=== PATIENT | female | born 1985 | race Caucasian/White ===

== ENCOUNTER → 2017-01-16 | Outpatient (CLI) | payer BC ==
[~2017-01-16] MED LIST: ASPI-390 PO; BCPILLS PO
== END | disposition home or self-care (01) ==
LOC: C.PAPS 11:24
PROVIDERS: ATTEND Obstetrics & Gynecology
DX: Z01.419 Encounter for gynecological examination (general) (routine) without abnormal findings (principal)

== ENCOUNTER 2019-04-15 07:44 | Inpatient (IN) ==
[2019-04-15] MEDS ORDERED: OXYTOCIN 30 UNITS/500 ML BAG IV PRN ×2 (07:51)
[2019-04-15 08:31] LABS: Basophils # (auto) 0.01 K/uL (0-0.2); Basophils % (auto) 0.1 %; Eosinophils # (auto) 0.07 K/uL (0-0.5); Eosinophils % (auto) 0.9 %; Hematocrit (blood only) 35.9 % (37-47); Hemoglobin 11.9 g/dL (12.0-16.0); Immature Granulocytes # (auto) 0.05 K/uL (0.00-0.02); Immature Granulocytes % (auto) 0.6 %; Lymphocytes # (auto) 1.83 K/uL (1.2-3.4); Lymphocytes % (auto) 22.5 %; Mean Corpuscular Hemoglobin 28.5 pg (25-34); Mean Corpuscular Volume 86.1 fL (80-100); Mean Platelet Volume 9.9 fL (7.4-10.4); Monocytes # (auto) 0.66 K/uL (0.11-0.59); Monocytes % (auto) 8.1 %; Neutrophils # (auto) 5.52 K/uL (1.4-6.5); Neutrophils % (auto) 67.8 %; Platelet Count 194 K/uL (130-400); RDW Coefficient of Variation 13.1 % (11.5-14.5); RDW Standard Deviation 40.8 fL (36.4-46.3); Red Blood Count 4.17 M/uL (4.2-5.4); White Blood Count 8.14 K/uL (4.8-10.8)
[2019-04-15 08:38] LABS: Mean Corpuscular Hgb Conc 33.1 g/dL (32-36)
[2019-04-15 08:42] LABS: Partial Thromboplastin Ratio 0.8; Partial Thromboplastin Time 22.9 Seconds (21.0-31.0); Prothrombin Time 10.1 Seconds (9.0-12.0)
[2019-04-15] MEDS: LACTATED RINGER'S 1,000 ML IV PRN ×3 (08:53→18:06)
[2019-04-15 08:58] LABS: Albumin Level 2.6 gm/dl (3.4-5.0); BUN Creatinine Ratio 15.3 (10-20); Calcium 8.6 mg/dl (8.5-10.1); Est GFR (African American) 131.9; Est GFR (Non-African American) 113.8; Potassium 3.5 mmol/L (3.5-5.1)
[2019-04-15 09:01] LABS: Albumin Globulin Ratio 0.7 (0.9-2); Bilirubin,Total 0.7 mg/dl (0.2-1); Globulin 3.9 gm/dl (2.5-4.0); Total Protein 6.5 gm/dl (6.4-8.2)
--- NOTE | 2019-04-15 09:13 | History & Physical Report ---
Date of Service April 15, 2019 Assessment & Plan (1) Encounter for induction of labor: IUP at 37 weeks with diagnosis of gestational hypertension lay begin pitocin induction of labor patient plans on epidural analgesia for labor pain control anticipate vaginal (2) Gestational HTN: we will get baseline PIH labs monitor as needed pending initial labs & BP's History of Present Illness Chief Complaint: Induction of labor for gestational HTN Primary Care Provider: Mg Valdes DO Patient is a 33 yo white female EDC/[birth year] who presents at 37 weeks for IOL because of gestational HTN. This was diagnosed by BP criteria 2 days ago. No PIH symptoms. GBS negative. otherwise has been uncomplicated. Blood type B negative. Allergies Allergy/AdvReac Type Severity Reaction Status Date / Time No Known Drug Allergies Allergy none Verified 04/13/19 13:28 Home Medications Home Medications Medication Instructions Recorded Confirmed Type PNV cmb#95-ferrous fumarate-FA 1 tab PO DAILY 04/10/19 04/15/19 History [] Patient History Medical History (Updated 04/15/19 @ 09:29 by Loren Esparza MD, FACOG) History of migraine History of varicella Low lying placenta nos or without hemorrhage, unspecified trimester resolved Surgical History (Updated 04/15/19 @ 07:59 by Catina Tran RN) H/O laparoscopy WNL History of lymph node biopsy History of wisdom tooth extraction Social History Preferred Language: Irish Communication Ability: Effective Rn Documentation Specialist Required: No Beliefs That Will Affect Care: None marital status: Current Living Situation: Spouse Other Information That Helps Us Care for You: No Feels Safe at Home: Yes Safety Concerns: Feels Safe At This Time Smoking Status: Never smoker Hx Alcohol Use: No Hx Substance Use: No Review of Systems All systems reviewed & are unremarkable except as noted in HPI & below Physical Exam Constitutional: WD/WN, vitals as above Respiratory: normal respiratory effort, lungs clear to auscultation Cardiovascular: RRR, no murmur, no edema Gastrointestinal (Abdomen): normal bowel sounds, soft, nontender, no hepatosplenomegaly Psychiatric: A+Ox3, euthymic affect Genitourinary: OB Exam Abdomen: + estimated weight (6-7 pounds) Manual OB Exam: + cervical dilation 2 cm, + cervical effacement 90% and + station -2 OB Exam Monitor Tracing: + external FHT monitor used, + external uterine monitor used, + category I and + normal FHT variability Results & Data Vital Signs (Past 12 Hours) Vital Signs Temp Pulse Resp BP 04/15/19 08:56 97 H 130/83 04/15/19 08:33 104 H 129/70 04/15/19 08:19 102 H 140/78 04/15/19 08:05 98.2 F 18 04/15/19 07:56 107 H 138/87
[2019-04-15] MEDS ORDERED: BUPIVACAINE 0.25% 30 ML VIAL ONE (15:14)
[2019-04-15] MEDS ORDERED: ePHEDrine sulfate 50 MG/ML AMP ONE (15:14)
[2019-04-15] MEDS ORDERED: fentaNYL citrate 100 MCG/2 ML VIAL ONE (15:14)
[2019-04-15] MEDS ORDERED: fentaNYL 2MCG/ML ROPIV 1.25MG/ML 100 ML BAG EPI ONE (15:15)
[2019-04-15] MEDS ORDERED: DiphenhydrAMINE HCL 50 MG/ML VIAL IV PRN (15:18)
[2019-04-15] MEDS ORDERED: ePHEDrine sulfate 50 MG/ML AMP IV PRN (15:18)
[2019-04-15] MEDS ORDERED: NALBUPHINE HCL INJ 10 MG/ML AMP IV PRN (15:18)
[2019-04-15] MEDS ORDERED: NALOXONE HCL 1 MG in SODIUM CHLORIDE 0.9% 1000ML 1,000 ML IV PRN (15:18)
[2019-04-15] MEDS ORDERED: NALOXONE HCL 0.4 MG/1 ML VIAL/CARP IV PRN (15:18)
--- NOTE | 2019-04-15 15:25 | Anesthesiology Consultation ---
Date of Service April 15, 2019 Assessment & Plan (1) Encounter for pre-operative examination: Chart Review Chart Review: Acceptable Risk for Labor Epidural Consults Requested none ASA ASA2 Proposed Anesthesia Anesthesia Type: Labor Epidural Risk / Benefits Reviewed With: PT / POA / Parent / Guardian, Accepts Plan and Informed Consent Obtained History Height/Weight Height: 5 ft 6 in Weight: 92.533 kg Allergies Allergy/AdvReac Type Severity Reaction Status Date / Time No Known Drug Allergies Allergy none Verified 04/13/19 13:28 Medications Home Medications Medication Instructions Recorded Confirmed Last Taken PNV cmb#95-ferrous fumarate-FA 1 tab PO DAILY 04/10/19 04/15/19 04/14/19 [] Active Medications Generic Name Dose Route Start Last Admin Trade Name Freq PRN Reason Stop Dose Admin Lactated Ringer's 1,000 mls @ 125 mls/hr 04/15/19 07:51 04/15/19 15:20 Lr IV 04/17/19 07:50 999 mls/hr .Q8H PRN Administration L&D Protocol Protocol Oxytocin 30 units in 500 mls @ 13 mls/hr 04/15/19 07:51 04/15/19 13:47 Pitocin IV 04/17/19 07:50 0.78 units/hr .Q24H PRN 13 mls/hr Labor Induction/Augmentation Titration Protocol 0.78 UNITS/HR Past Medical History Medical History History of migraine History of varicella Low lying placenta nos or without hemorrhage, unspecified trimester resolved Exercise / Class Metabolic Activity II 4-5 Yardwork/Stairs/Walk up hill Past Family History Family History Father Diabetes Hypertension Grandmother (Paternal) Diabetes Sister Gestational diabetes Grandfather (Maternal) Neoplasm of brain Mother Dyslipidemia Past Surgical History Surgical History H/O laparoscopy WNL History of lymph node biopsy History of wisdom tooth extraction Past Anesthesia History No Hx of Anesthesia Complications and No Family Hx of Anesthesia Complications History of PONV No Hx of PONV and No Hx of Motion Sickness Social History Smoking Status: Never smoker Hx Alcohol Use: No Hx Substance Use: No substance use type: does not use Physical Exam Vital Signs Last Vital Signs Temp 98.1 F 04/15/19 11:02 Pulse 94 H 04/15/19 15:17 Resp 16 04/15/19 13:47 BP 143/93 H 04/15/19 15:12 Pulse Ox 97 04/15/19 15:17 ENMT Mouth: no dentition abnormality Thyromental Distance: > or= 3.5 Finger Breadths Mallampati Class: II Neck normal visual inspection Respiratory normal respiratory effort Auscultation: lungs clear to auscultation bilaterally Cardiovascular Rate/Rhythm: regular rate and regular rhythm Testing Laboratory Results 04/15/19 08:10 04/15/19 08:10 PT 10.1 Seconds (9.0-12.0) 04/15/19 08:10 INR 1.0 (0.9-1.1) 04/15/19 08:10 APTT 22.9 Seconds (21.0-31.0) 04/15/19 08:10
[2019-04-15] MEDS: ONDANSETRON INJ 2 MG/ML 2 ML VIAL IV PRN (16:33)
[2019-04-15] MEDS ORDERED: ACETAMINOPHEN 325 MG TAB PO PRN (19:39)
[2019-04-15] MEDS ORDERED: CALCIUM CARBONATE 500 MG CHEWABLE TAB PO PRN (21:48)
[2019-04-15] MEDS: fentaNYL 2MCG/ML ROPIV 1.25MG/ML 100 ML BAG EPI PRN (23:02)
[2019-04-16] MEDS: LACTATED RINGER'S 1,000 ML IV PRN (02:35)
[2019-04-16] MEDS: ONDANSETRON INJ 2 MG/ML 2 ML VIAL IV PRN (03:30)
[2019-04-16] MEDS: fentaNYL 2MCG/ML ROPIV 1.25MG/ML 100 ML BAG EPI PRN (04:00)
[2019-04-16] MEDS ORDERED: SUPERCREAM 0.870% 15 GM JAR EXT PRN ×2 (06:39→23:28)
[2019-04-16] MEDS ORDERED: DIPHTHERIA/TETANUS/PERTUSSIS 0.5 ML SYR/VIAL IM ONE (06:39)
[2019-04-16] MEDS ORDERED: HYDROCORTISONE ACETATE 25 MG SUPP PR PRN ×2 (06:39→23:28)
[2019-04-16] MEDS ORDERED: OXYTOCIN 30 UNITS/500 ML BAG IV PRN ×2 (06:39→23:28)
[2019-04-16] MEDS ORDERED: bisacodyL 10 MG SUPP PR PRN ×2 (06:39→23:28)
[2019-04-16] MEDS ORDERED: IBUPROFEN 600 MG TAB PO ONE (06:44)
--- NOTE | 2019-04-16 07:24 | Delivery Summary ---
DATE OF OPERATION: 04/16/2019 The patient is a 33-year-old 2, para 0-0-1-0, white female, EDC of [birth year]05/2019, who presented at 37 weeks for induction of labor because of gestational hypertension at 37 weeks. She began on Pitocin augmentation of her labor. Membranes were ruptured. She was 4 cm dilated. She received epidural analgesia that was effective. She progressed to full dilation and pushed effectively over intact perineum. There was a loose nuchal cord, which was reduced at the time of delivery. The rest of the delivered with a very mild shoulder dystocia which was resolved with hyperflexion of the hips. The rest of the was delivered and placed on mother's abdomen for further attention and drying. After approximately 20 seconds, the cord was clamped and cut. The infant had poor respiratory effort and was brought to the baby bed for further evaluation and drying. He did receive CPAP and as a result was taken to the nursery for further assessment. The placenta was expressed intact with a 3-vessel cord. A first-degree perineal laceration was repaired with 3-0 chromic in the usual fashion. Estimated blood loss was 350 mL. Mother is doing well after delivery, baby stable in the nursery undergoing further evaluation. I attest to the content of the Intraoperative Record and any orders documented therein. Any exceptions are noted below. MTDD
--- NOTE | 2019-04-16 07:35 | Anesthesia Procedure Note ---
Date of Service April 16, 2019 Anesthesia Post Epidural Note Vital Signs Vital Signs: Temp Pulse Resp BP Pulse Ox 37.4 C 99 H 18 128/73 99 04/16/19 06:23 04/16/19 07:26 04/16/19 07:06 04/16/19 07:26 04/16/19 06:30 Pain Intensity Head: Pain Intensity: 5 Bilateral Perineal: Pain Intensity: 5 Notes Mental Status: alert / awake / arousable and participated in evaluation Nausea / Vomiting: adequately controlled Pain: adequately controlled Airway Patency, RR, SpO2: stable & adequate BP & HR: stable & adequate Hydration State: stable & adequate Neuraxial Anesthesia: was administered and sensory block is resolving Anesthetic Complications: no major complications apparent Epidural: Removed without complications and With tip intact
[2019-04-16] MEDS: BENZOCAINE 20% AER SPR 82.5 GM CAN EXT PRN (08:19)
[2019-04-16] MEDS: ACETAMINOPHEN 325 MG TAB PO PRN (08:19)
[2019-04-16] MEDS: DOCUSATE SODIUM 100 MG CAP PO SCH ×2 (08:19→22:11)
[2019-04-16] MEDS: PRENATAL VITAMIN 1 TAB PO SCH (08:50)
[2019-04-16] MEDS: IBUPROFEN 600 MG TAB PO PRN ×3 (11:01→22:12)
[2019-04-16 20:58] LABS: Basophils # (auto) 0.02 K/uL (0-0.2); Basophils % (auto) 0.1 %; Eosinophils # (auto) 0.08 K/uL (0-0.5); Eosinophils % (auto) 0.5 %; Hemoglobin 8.3 g/dL (12.0-16.0); Immature Granulocytes # (auto) 0.07 K/uL (0.00-0.02); Immature Granulocytes % (auto) 0.4 %; Lymphocytes # (auto) 2.68 K/uL (1.2-3.4); Lymphocytes % (auto) 15.2 %; Mean Corpuscular Hemoglobin 29.7 pg (25-34); Mean Corpuscular Hgb Conc 34.6 g/dL (32-36); Mean Platelet Volume 9.7 fL (7.4-10.4); Monocytes # (auto) 1.79 K/uL (0.11-0.59); Monocytes % (auto) 10.2 %; Neutrophils # (auto) 12.96 K/uL (1.4-6.5); Neutrophils % (auto) 73.6 %; Platelet Count 168 K/uL (130-400); RDW Coefficient of Variation 13.2 % (11.5-14.5); RDW Standard Deviation 41.2 fL (36.4-46.3); Red Blood Count 2.79 M/uL (4.2-5.4)
[2019-04-16] MEDS ORDERED: OXYTOCIN 30 UNITS in LACTATED RINGER'S 1,000 ML IV PRN (21:00)
[2019-04-16] MEDS: OXYCODONE/ACETAMINOPHEN 5mg/325mg TAB PO PRN (22:13)
[2019-04-16] MEDS ORDERED: BUTORPHANOL TARTRATE 1 MG/ML VIAL ONE (22:23)
[2019-04-16] MEDS ORDERED: BUTORPHANOL TARTRATE 1 MG/ML VIAL IV PRN (22:32)
[2019-04-16] MEDS ORDERED: CEFAZOLIN 3000MG/72.5 ML BAG IV STA (22:45)
[2019-04-16] MEDS ORDERED: BUPIVACAINE 0.25% 30 ML VIAL ONE (22:50)
[2019-04-16] MEDS ORDERED: MIDAZOLAM HCL 1 MG/ML 2ML VIAL ONE ×2 (22:51→23:21)
[2019-04-16] MEDS ORDERED: KETAMINE HCL INJ 50 MG/ML 10 ML VIAL ONE (22:52)
[2019-04-16] MEDS ORDERED: fentaNYL citrate 100 MCG/2 ML VIAL ONE (22:52)
--- NOTE | 2019-04-16 22:57 | Anesthesiology Consultation ---
Date of Service April 16, 2019 Assessment & Plan (1) Encounter for pre-operative examination: Chart Review Chart Review: Acceptable Risk for Surgery (Emergent for bleeding) History Surgery Operation Date: 04/16/19 22:40 Proposed Procedures p Dilatation and Curettage - Sally Bowen MD, FACOG Height/Weight Height: 5 ft 6 in Weight: 92.533 kg Allergies Allergy/AdvReac Type Severity Reaction Status Date / Time No Known Drug Allergies Allergy none Verified 04/13/19 13:28 Medications Home Medications Medication Instructions Recorded Confirmed Last Taken PNV cmb#95-ferrous fumarate-FA 1 tab PO DAILY 04/10/19 04/15/19 04/14/19 [] Active Medications Generic Name Dose Route Start Last Admin Trade Name Freq PRN Reason Stop Dose Admin Acetaminophen 650 mg 04/16/19 06:39 04/16/19 08:19 Tylenol PO 05/16/19 06:38 650 mg Q6H PRN Administration Pain/CASTELLANOS/Fever Benzocaine 1 appln 04/16/19 06:39 04/16/19 08:19 Dermoplast Pain Relieving [place] EXT 05/16/19 06:38 82.5 appln PRN PRN Administration Perineal Discomfort Calcium Carbonate 500 mg 04/15/19 21:48 04/15/19 22:05 Tums PO 05/15/19 21:47 500 mg Q6 PRN Administration Indigestion Docusate Sodium 100 mg 04/16/19 08:00 04/16/19 22:11 Colace PO 05/16/19 07:59 100 mg DAILY@08,21 DAPHNEY Administration Oxytocin 30 units in 500 mls @ 333.333 mls/hr 04/15/19 07:51 04/16/19 06:06 Pitocin IV 05/15/19 07:50 59.94 units/hr .Q1H30M PRN 999 mls/hr Bleeding Control Administration Protocol 20 UNITS/HR Oxytocin 30 units in 500 mls @ 31 mls/hr 04/15/19 07:51 04/16/19 02:59 Pitocin IV 04/17/19 07:50 1.86 units/hr .Q16H8M PRN 31 mls/hr Labor Induction/Augmentation Titration Protocol 1.86 UNITS/HR Oxytocin 30 units/ Lactated 1,003 mls @ 500 mls/hr 04/16/19 21:00 04/16/19 21:12 Ringer's IV 04/16/19 23:15 500 mls/hr .Q2H1M PRN Infusion L&D Protocol Protocol Lactated Ringer's 1,000 mls @ 999 mls/hr 04/16/19 23:00 04/16/19 22:55 Lr IV 05/16/19 22:59 999 mls/hr .Q1H1M DAPHNEY Administration Ibuprofen 600 mg 04/16/19 06:39 04/16/19 22:12 Motrin PO 05/16/19 06:38 600 mg Q4H PRN Administration Pain/CASTELLANOS/Cramping/Fever Oxycodone/Acetaminophen 1 tab 04/16/19 06:39 04/16/19 22:13 Percocet 5mg/325mg PO 04/30/19 06:38 1 tab Q4H PRN Administration Pain not relieved by... Prenat Multivit/Ness/Iron/Folic Ac 1 tab 04/16/19 08:00 04/16/19 08:50 Vitamin PO 05/16/19 07:59 Not Given DAILY@08 DAPHNEY Past Medical History Medical History History of migraine History of varicella Low lying placenta nos or without hemorrhage, unspecified trimester resolved Past Family History Family History Father Diabetes Hypertension Grandmother (Paternal) Diabetes Sister Gestational diabetes Grandfather (Maternal) Neoplasm of brain Mother Dyslipidemia Past Surgical History Surgical History H/O laparoscopy WNL History of lymph node biopsy History of wisdom tooth extraction Social History Smoking Status: Never smoker Hx Alcohol Use: No Hx Substance Use: No substance use type: does not use Physical Exam Vital Signs Last Vital Signs Temp 36.6 C 04/16/19 22:00 Pulse 98 H 04/16/19 22:00 Resp 20 04/16/19 22:00 BP 116/68 04/16/19 22:00 Pulse Ox 96 04/16/19 22:00 Testing Laboratory Results 04/16/19 20:37 04/15/19 08:10 PT 10.1 Seconds (9.0-12.0) 04/15/19 08:10 INR 1.0 (0.9-1.1) 04/15/19 08:10 APTT 22.9 Seconds (21.0-31.0) 04/15/19 08:10
[2019-04-16] MEDS ORDERED: CEFAZOLIN 3,000 MG in DEXTROSE 5% 50 ML IV ONE (23:00)
[2019-04-16] MEDS ORDERED: LACTATED RINGER'S 1,000 ML IV SCH (23:00)
[2019-04-16] MEDS ORDERED: CEFAZOLIN 2000MG 2,000 MG/15 ML SYR IV ONE (23:00)
[2019-04-16] MEDS ORDERED: OXYTOCIN 20 UNITS in LACTATED RINGER'S 1,000 ML IV SCH (23:15)
[2019-04-16] MEDS ORDERED: ACETAMINOPHEN 325 MG TAB PO PRN (23:28)
[2019-04-16] MEDS ORDERED: BENZOCAINE 20% AER SPR 82.5 GM CAN EXT PRN (23:28)
[2019-04-16] MEDS ORDERED: OXYCODONE/ACETAMINOPHEN 5mg/325mg TAB PO PRN (23:28)
[2019-04-16] MEDS ORDERED: OXYTOCIN 10 UNITS/ML VIAL ONE (23:29)
[2019-04-16] MEDS ORDERED: LIDOCAINE HCL 2% MPF (LOCAL) 5 ML VIAL INFIL ONE (23:29)
[2019-04-16] MEDS ORDERED: PROPOFOL IV EMULSION 10 MG/ML 20 ML VIAL IV ONE (23:29)
[2019-04-16] MEDS ORDERED: METOCLOPRAMIDE HCL INJ 5 MG/ML 2 ML VIAL ONE (23:29)
[2019-04-16] MEDS ORDERED: ONDANSETRON INJ 2 MG/ML 2 ML VIAL ONE (23:29)
--- NOTE | 2019-04-16 23:33 | Operative Report ---
PG Post Operative Report Pre & Post Diagnosis Operation Date: 04/16/19 22:40 <No data on this case meets the specified criteria> hemorrhage I identified the patient and participated in the time-out.: Yes Procedure Operation Date: 04/16/19 22:40 <No data on this case meets the specified criteria> Surgeon Sally Bowen MD, FACOG Stick Welder none Estimated Blood Loss 350 Findings Consistent with Post-Op Diagnosis Specimens Placenta Description of Procedure Patient was given sedation anesthetic prepped and draped in dorsolithotomy position IV Ancef given prophylactically and she was prepped with Betadine patient was examined and with better lighting in the operating room and also with anesthesia from Dr. Reyes I was able to visualize the cervix there were no lacerations or bleeding there was a small laceration that was bleeding however I was able to do a bimanual exam and a full internal exam of the uterus I was able to remove some tissue that was consistent with placenta at the end I felt I had removed all the tissue from the uterus bleeding improved Pitocin was started at the small laceration was repaired with 3-0 Vicryl bleeding was minimal at the end of the procedure I attest to the content of the Intraoperative Record and any orders documented therein. Any exceptions are noted below.
[2019-04-17] MEDS ORDERED: ATROPINE SULFATE 0.1 MG/ML 10ML SYR IV PRN (00:38)
--- NOTE | 2019-04-17 00:38 | Anesthesiology Progress Note ---
Date of Service April 17, 2019 Anesthesia Post Procedure Vital Signs Vital Signs: Temp Pulse Pulse Pulse Resp BP BP 04/17/19 00:37 90 109/59 L 04/17/19 00:34 91 H 04/17/19 00:29 86 04/17/19 00:27 84 105/53 L 04/17/19 00:24 92 H 04/17/19 00:19 89 04/17/19 00:17 85 114/55 L 04/17/19 00:14 93 H 04/17/19 00:09 89 04/17/19 00:07 87 112/56 L 04/17/19 00:04 88 04/16/19 23:59 87 04/16/19 23:57 87 119/65 04/16/19 23:54 86 04/16/19 23:49 87 04/16/19 23:46 90 123/67 04/16/19 23:44 93 H 04/16/19 23:41 87 129/90 04/16/19 23:39 84 04/16/19 22:00 36.6 C 98 H 20 116/68 04/16/19 20:05 36.7 C 92 H 20 127/74 04/16/19 18:10 103 H 127/79 04/16/19 15:03 36.7 C 87 16 118/75 04/16/19 08:40 37.1 C 93 H 16 124/73 04/16/19 07:36 93 H 129/65 04/16/19 07:26 99 H 128/73 04/16/19 07:16 98 H 119/72 04/16/19 07:06 18 04/16/19 07:00 90 18 125/72 04/16/19 06:56 89 130/71 04/16/19 06:46 106 H 128/69 04/16/19 06:45 18 04/16/19 06:36 94 H 129/70 04/16/19 06:30 96 H 18 04/16/19 06:26 100 H 135/77 04/16/19 06:25 106 H 04/16/19 06:23 37.4 C 18 04/16/19 06:20 99 H 04/16/19 06:16 99 H 138/68 04/16/19 06:15 98 H 04/16/19 06:10 107 H 04/16/19 06:06 37.4 C 04/16/19 06:05 101 H 04/16/19 06:01 110 H 137/71 04/16/19 06:00 113 H 04/16/19 05:53 125 H 04/16/19 05:50 135 H 04/16/19 05:48 96 H 04/16/19 05:43 98 H 04/16/19 05:38 118 H 04/16/19 05:33 105 H 04/16/19 05:31 110 H 131/66 04/16/19 05:28 98 H 04/16/19 05:25 110 H 04/16/19 05:23 100 H 04/16/19 05:20 04/16/19 05:19 94 H 04/16/19 05:18 94 H 04/16/19 05:15 93 H 129/67 04/16/19 05:14 102 H 04/16/19 05:13 94 H 04/16/19 05:08 92 H 04/16/19 05:03 90 04/16/19 05:02 85 18 120/69 04/16/19 04:58 95 H 04/16/19 04:56 98 H 04/16/19 04:53 97 H 04/16/19 04:48 105 H 04/16/19 04:43 91 H 04/16/19 04:42 107 H 04/16/19 04:38 88 04/16/19 04:34 96 H 04/16/19 04:33 91 H 04/16/19 04:31 90 20 129/72 04/16/19 04:28 114 H 04/16/19 04:23 110 H 04/16/19 04:21 97 H 04/16/19 04:20 38.1 C H 20 04/16/19 04:18 92 H 04/16/19 04:15 89 128/65 04/16/19 04:13 93 H 04/16/19 04:08 97 H 04/16/19 04:03 99 H 04/16/19 04:02 100 H 20 132/65 04/16/19 04:01 100 H 04/16/19 03:58 114 H 04/16/19 03:54 94 H 04/16/19 03:53 95 H 04/16/19 03:48 97 H 04/16/19 03:45 110 H 139/71 04/16/19 03:43 96 H 04/16/19 03:40 115 H 04/16/19 03:38 101 H 04/16/19 03:33 122 H 04/16/19 03:32 105 H 04/16/19 03:31 92 H 138/80 04/16/19 03:27 112 H 04/16/19 03:22 125 H 04/16/19 03:17 108 H 04/16/19 03:16 106 H 04/16/19 03:12 98 H 04/16/19 03:07 104 H 04/16/19 03:02 100 H 04/16/19 03:01 92 H 18 132/77 04/16/19 02:57 91 H 04/16/19 02:52 90 04/16/19 02:47 86 119/59 L 04/16/19 02:42 80 04/16/19 02:39 37.5 C 18 04/16/19 02:37 99 H 04/16/19 02:32 91 H 04/16/19 02:31 90 16 127/68 04/16/19 02:27 88 04/16/19 02:22 84 04/16/19 02:17 81 04/16/19 02:15 83 116/60 04/16/19 02:12 83 04/16/19 02:07 80 04/16/19 02:02 83 16 115/61 04/16/19 01:57 85 04/16/19 01:52 85 04/16/19 01:47 85 04/16/19 01:45 87 16 109/58 L 04/16/19 01:42 85 04/16/19 01:37 88 04/16/19 01:32 85 113/62 04/16/19 01:27 82 04/16/19 01:22 79 04/16/19 01:17 90 04/16/19 01:16 80 18 109/57 L 04/16/19 01:12 84 04/16/19 01:08 85 04/16/19 01:07 78 04/16/19 01:06 37.0 C 16 04/16/19 01:02 81 99/54 L 04/16/19 00:58 85 04/16/19 00:57 83 04/16/19 00:52 88 04/16/19 00:47 75 16 100/50 L 04/16/19 00:42 74 Pulse Ox 04/17/19 00:37 04/17/19 00:34 95 04/17/19 00:29 94 04/17/19 00:27 04/17/19 00:24 94 04/17/19 00:19 94 04/17/19 00:17 04/17/19 00:14 94 04/17/19 00:09 94 04/17/19 00:07 04/17/19 00:04 94 04/16/19 23:59 95 04/16/19 23:57 94 04/16/19 23:54 96 04/16/19 23:49 98 04/16/19 23:46 04/16/19 23:44 98 04/16/19 23:41 04/16/19 23:39 97 04/16/19 22:00 96 04/16/19 20:05 97 04/16/19 18:10 04/16/19 15:03 96 04/16/19 08:40 04/16/19 07:36 04/16/19 07:26 04/16/19 07:16 04/16/19 07:06 04/16/19 07:00 04/16/19 06:56 04/16/19 06:46 04/16/19 06:45 04/16/19 06:36 04/16/19 06:30 99 04/16/19 06:26 04/16/19 06:25 94 04/16/19 06:23 04/16/19 06:20 97 04/16/19 06:16 04/16/19 06:15 93 04/16/19 06:10 92 04/16/19 06:06 04/16/19 06:05 92 04/16/19 06:01 04/16/19 06:00 94 04/16/19 05:53 93 04/16/19 05:50 94 04/16/19 05:48 94 04/16/19 05:43 93 04/16/19 05:38 96 04/16/19 05:33 92 04/16/19 05:31 93 04/16/19 05:28 93 04/16/19 05:25 94 04/16/19 05:23 96 04/16/19 05:20 94 04/16/19 05:19 83 L 04/16/19 05:18 93 04/16/19 05:15 04/16/19 05:14 93 04/16/19 05:13 92 04/16/19 05:08 93 04/16/19 05:03 93 04/16/19 05:02 04/16/19 04:58 93 04/16/19 04:56 94 04/16/19 04:53 92 04/16/19 04:48 94 04/16/19 04:43 93 04/16/19 04:42 88 L 04/16/19 04:38 93 04/16/19 04:34 86 L 04/16/19 04:33 92 04/16/19 04:31 04/16/19 04:28 97 04/16/19 04:23 95 04/16/19 04:21 82 L 04/16/19 04:20 04/16/19 04:18 94 04/16/19 04:15 86 L 04/16/19 04:13 94 04/16/19 04:08 94 04/16/19 04:03 95 04/16/19 04:02 04/16/19 04:01 95 04/16/19 03:58 94 04/16/19 03:54 94 04/16/19 03:53 91 04/16/19 03:48 94 04/16/19 03:45 04/16/19 03:43 93 04/16/19 03:40 93 04/16/19 03:38 95 04/16/19 03:33 82 L 04/16/19 03:32 92 04/16/19 03:31 04/16/19 03:27 95 04/16/19 03:22 96 04/16/19 03:17 93 04/16/19 03:16 88 L 04/16/19 03:12 94 04/16/19 03:07 97 04/16/19 03:02 95 04/16/19 03:01 04/16/19 02:57 96 04/16/19 02:52 95 04/16/19 02:47 93 04/16/19 02:42 94 04/16/19 02:39 04/16/19 02:37 95 04/16/19 02:32 94 04/16/19 02:31 04/16/19 02:27 94 04/16/19 02:22 95 04/16/19 02:17 94 04/16/19 02:15 04/16/19 02:12 94 04/16/19 02:07 94 04/16/19 02:02 93 04/16/19 01:57 92 04/16/19 01:52 92 04/16/19 01:47 92 04/16/19 01:45 04/16/19 01:42 92 04/16/19 01:37 93 04/16/19 01:32 95 04/16/19 01:27 97 04/16/19 01:22 95 04/16/19 01:17 95 04/16/19 01:16 04/16/19 01:12 98 04/16/19 01:08 87 L 04/16/19 01:07 95 04/16/19 01:06 04/16/19 01:02 98 04/16/19 00:58 88 L 04/16/19 00:57 95 04/16/19 00:52 93 04/16/19 00:47 97 04/16/19 00:42 96 Pain Intensity Head: Pain Intensity: 5 Bilateral Perineal: Pain Intensity: 2 Abdomen: Pain Intensity: 4 Transfer of Care Handoff Completed per policy Notes Mental Status: alert / awake / arousable Patient Amnestic to Procedure: Yes Nausea / Vomiting: adequately controlled Pain: adequately controlled Airway Patency, RR, SpO2: stable & adequate BP & HR: stable & adequate Hydration State: stable & adequate Anesthetic Complications: no major complications apparent
[2019-04-17] MEDS: IBUPROFEN 600 MG TAB PO PRN ×4 (02:19→17:57)
[2019-04-17] MEDS: OXYCODONE/ACETAMINOPHEN 5mg/325mg TAB PO PRN (02:20)
--- NOTE | 2019-04-17 06:46 | Obstetrical Progress Note ---
Date of Service April 17, 2019 Assessment & Plan (1) Encounter for care and examination after delivery: - PPD 1, complicated by gestational HTN - progressing appropriately - blood pressures well controlled - continue supportive care Supervising Physician Co-Signing Physician Notes Resident Physician Supervision Note: I interviewed and examined the patient. Discussed with Dr. Ordaz] and agree with findings and plan as documented in the note. Any exceptions or clarifications are listed here: [None] Documented By: Sally Bowen MD, FACOG Subjective Doing well this AM. Review of Systems Constitutional: no fever, no chills and no fatigue Respiratory: no cough and no dyspnea Cardiovascular: no chest pain, no syncope, no edema and no calf pain Gastrointestinal: no abdominal pain, no nausea, no vomiting, no cramping, no constipation and no diarrhea/loose stools Genitourinary: no dysuria and no difficulty urinating Neurologic: no headache(s) Physical Exam Constitutional: well developed and well nourished Respiratory: normal respiratory effort; no respiratory distress, no labored breathing and no cough Auscultation: no crackles, no rales, no rhonchi and no wheezes Cardiovascular: Rate/Rhythm: regular rate and regular rhythm Heart Sounds: no gallop, no murmur and no cardiac rub Extremities: no pedal edema Gastrointestinal (Abdomen): Inspection/Auscultation: + abdomen distended and normal bowel sounds Percussion/Palpation: abdomen soft; no guarding Musculoskeletal: no tenderness to palpation of calves bilaterally Genitourinary: Uterus small and firm, palpable in midline at level of umbilicus, some tenderness to palpation. Results & Data Vital Signs (Past 12 Hours) Vital Signs Temp Pulse Pulse Pulse Pulse Resp BP 04/17/19 04:10 36.6 C 88 16 04/17/19 02:45 36.6 C 88 18 04/17/19 02:24 88 04/17/19 02:19 92 H 04/17/19 02:14 86 04/17/19 02:09 87 04/17/19 02:07 91 H 107/60 04/17/19 02:04 89 04/17/19 01:59 83 04/17/19 01:54 91 H 04/17/19 01:49 90 04/17/19 01:44 89 04/17/19 01:40 18 04/17/19 01:39 86 04/17/19 01:37 89 125/57 L 04/17/19 01:34 94 H 04/17/19 01:29 81 04/17/19 01:24 85 04/17/19 01:19 86 04/17/19 01:14 83 04/17/19 01:10 36.7 C 16 04/17/19 01:09 82 04/17/19 01:07 82 108/59 L 04/17/19 01:04 83 04/17/19 00:59 80 04/17/19 00:54 97 H 04/17/19 00:49 93 H 04/17/19 00:44 84 04/17/19 00:40 84 16 105/53 L 04/17/19 00:39 88 04/17/19 00:37 90 109/59 L 04/17/19 00:34 91 H 04/17/19 00:30 85 16 114/55 L 04/17/19 00:29 86 04/17/19 00:27 84 105/53 L 04/17/19 00:24 92 H 04/17/19 00:20 87 16 112/56 L 04/17/19 00:19 89 04/17/19 00:17 85 114/55 L 04/17/19 00:14 93 H 04/17/19 00:10 85 18 119/65 04/17/19 00:09 89 04/17/19 00:07 87 112/56 L 04/17/19 00:04 88 04/17/19 00:00 85 16 119/65 04/16/19 23:59 87 04/16/19 23:57 87 119/65 04/16/19 23:54 86 04/16/19 23:50 90 18 123/67 04/16/19 23:49 87 04/16/19 23:46 90 123/67 04/16/19 23:44 93 H 04/16/19 23:41 87 129/90 04/16/19 23:40 36.7 C 87 16 129/90 04/16/19 23:39 84 04/16/19 22:00 36.6 C 98 H 20 04/16/19 20:05 36.7 C 92 H 20 BP BP Pulse Ox 04/17/19 04:10 120/66 97 04/17/19 02:45 127/76 97 20 02:24 97 04/17/19 02:19 97 04/17/19 02:14 96 04/17/19 02:09 96 04/17/19 02:07 04/17/19 02:04 96 04/17/19 01:59 96 04/17/19 01:54 96 04/17/19 01:49 96 04/17/19 01:44 96 04/17/19 01:40 04/17/19 01:39 96 04/17/19 01:37 04/17/19 01:34 96 04/17/19 01:29 96 04/17/19 01:24 96 04/17/19 01:19 96 04/17/19 01:14 95 04/17/19 01:10 94 04/17/19 01:09 95 04/17/19 01:07 04/17/19 01:04 97 04/17/19 00:59 97 04/17/19 00:54 96 04/17/19 00:49 97 04/17/19 00:44 95 04/17/19 00:40 94 04/17/19 00:39 96 04/17/19 00:37 04/17/19 00:34 95 04/17/19 00:30 94 04/17/19 00:29 94 04/17/19 00:27 04/17/19 00:24 94 04/17/19 00:20 94 04/17/19 00:19 94 04/17/19 00:17 04/17/19 00:14 94 04/17/19 00:10 94 04/17/19 00:09 94 04/17/19 00:07 04/17/19 00:04 94 04/17/19 00:00 94 04/16/19 23:59 95 04/16/19 23:57 94 04/16/19 23:54 96 04/16/19 23:50 04/16/19 23:49 98 04/16/19 23:46 04/16/19 23:44 98 04/16/19 23:41 04/16/19 23:40 97 04/16/19 23:39 97 04/16/19 22:00 116/68 96 04/16/19 20:05 127/74 97 PG Care Time/CCT Total # of Minutes Spent Total Time Spent with Patient: Total time spent is greater than 50% in coordination of care (as documented) at patient's floor/unit and/or counseling patient: Resident Activity Tracking Resident Involvement: Resident Care Provided Care Provided: Adult Hospital Medicine
[2019-04-17 07:07] LABS: Hematocrit (blood only) 21.2 % (37-47); Hemoglobin 7.2 g/dL (12.0-16.0); Mean Corpuscular Hemoglobin 29.5 pg (25-34); Mean Corpuscular Volume 86.9 fL (80-100); Mean Platelet Volume 9.3 fL (7.4-10.4); Platelet Count 135 K/uL (130-400); RDW Coefficient of Variation 13.5 % (11.5-14.5); RDW Standard Deviation 42.6 fL (36.4-46.3); Red Blood Count 2.44 M/uL (4.2-5.4); White Blood Count 13.62 K/uL (4.8-10.8)
[2019-04-17] MEDS: PRENATAL VITAMIN 1 TAB PO SCH (07:35)
[2019-04-17] MEDS: DOCUSATE SODIUM 100 MG CAP PO SCH ×2 (07:36→20:19)
[2019-04-17] MEDS ORDERED: PRENATAL VITAMIN 1 TAB PO SCH (08:00)
[2019-04-17] MEDS ORDERED: DOCUSATE SODIUM 100 MG CAP PO SCH (08:00)
[2019-04-17] MEDS: ACETAMINOPHEN 325 MG TAB PO PRN (14:02)
[2019-04-17] MEDS ORDERED: bisacodyL 5 MG TABEC PO SCH ×2 (20:00)
[2019-04-17] MEDS ORDERED: SODIUM CHLORIDE 0.9% 250 ML IV PRN (21:07)
--- NOTE | 2019-04-17 21:11 | Obstetrical Progress Note ---
Date of Service April 17, 2019 Subjective Patient has been feeling dizzy off and on today. She is ambulating, tolerating PO. Hgb this morning was 7.2 (down from 8.3 the day prior). Vitals stable, occasionally pulse in 90s. We had discussed possibility of blood transfusion if she felt symptomatic this morning, and she has thought about this all day. She is worried about feeling unwell when she leaves the hospital to go to [facility] tomorrow. I counseled her about risks/benefits, consent, and she would like to have transfusion. H/H ordered. 2u PRBC ordered. Results & Data Vital Signs (Past 12 Hours) Vital Signs Temp Pulse Pulse Resp BP Pulse Ox 04/17/19 16:11 36.6 C 90 18 132/73 96 04/17/19 12:55 37.1 C 99 H 18 136/76 97 PG Care Time/CCT Total # of Minutes Spent Total Time Spent with Patient: Total time spent is greater than 50% in coordination of care (as documented) at patient's floor/unit and/or counseling patient:
[2019-04-17 21:30] LABS: Hematocrit (blood only) 21.1 % (37-47); Hemoglobin 7.2 g/dL (12.0-16.0)
[2019-04-18] MEDS: IBUPROFEN 600 MG TAB PO PRN ×2 (03:34→08:11)
[2019-04-18 06:58] LABS: Hematocrit (blood only) 26.4 % (37-47)
--- NOTE | 2019-04-18 08:05 | Obstetrical Progress Note ---
Date of Service April 18, 2019 Assessment & Plan (1) Encounter for care and examination after delivery: with complicated by gestational HTN and PPH. = taken to OR yesterday for investigation of continued bleeding. Retained placenta removed, cervical laceration sutured. - Hg rebel to 9.0 after 2 u pRBC transfusion from 7.2. - PPD 2, complicated by gestational HTN - progressing appropriately - blood pressures well controlled - discharge instructions discussed and questions answered Supervising Physician Co-Signing Physician Notes Resident Physician Supervision Note: I was present with Dr. Ordaz during the history and exam. I discussed the case with the resident and agree with the findings and plan as documented in the note. Any exceptions or clarifications are listed here: PPD#2 doing well, DC home today. Instructions reviewed. Feeling much better after transfusion, Hgb 9.0. Documented By: Fabiana Salmeron, DO Subjective Feeling much better this morning after 2 u pRBC transfusion. Has occasional muscle cramps in calves but otherwise denies any pain. Eating and drinking appropriately. Review of Systems Constitutional: + fatigue; no fever, no chills and no body aches Respiratory: no cough and no dyspnea Cardiovascular: + edema; no chest pain and no dyspnea Gastrointestinal: no abdominal pain, no nausea, no vomiting, no constipation and no diarrhea/loose stools Genitourinary: no dysuria Physical Exam Constitutional: well developed and well nourished Respiratory: normal respiratory effort; no respiratory distress, no labored breathing and no cough Auscultation: no crackles, no rales, no rhonchi and no wheezes Cardiovascular: Rate/Rhythm: regular rate and regular rhythm Heart Sounds: no gallop, no murmur and no cardiac rub Extremities: no pedal edema Gastrointestinal (Abdomen): Inspection/Auscultation: normal bowel sounds; abdomen not distended Percussion/Palpation: abdomen soft; no guarding Genitourinary: Uterine fundus palpable 2-3 fingers below level of umbilicus; firm and nontender Results & Data Vital Signs (Past 12 Hours) Vital Signs Temp Pulse Pulse Pulse Resp BP BP 04/18/19 03:20 36.6 C 87 16 124/72 04/18/19 02:30 36.8 C 92 H 16 126/73 04/18/19 02:00 36.6 C 93 H 16 117/72 04/18/19 01:45 36.8 C 91 H 16 114/74 04/18/19 01:32 36.6 C 94 H 16 129/72 04/18/19 00:35 36.7 C 89 18 127/78 04/17/19 23:35 36.6 C 90 16 124/73 04/17/19 23:05 36.6 C 93 H 16 127/78 04/17/19 22:50 36.6 C 87 87 16 119/60 119/60 04/17/19 22:31 36.8 C 84 18 116/76 04/17/19 20:15 36.7 C 98 H 16 133/72 Pulse Ox 04/18/19 03:20 96 04/18/19 02:30 97 04/18/19 02:00 96 04/18/19 01:45 95 04/18/19 01:32 96 04/18/19 00:35 96 04/17/19 23:35 97 04/17/19 23:05 97 04/17/19 22:50 97 04/17/19 22:31 96 04/17/19 20:15 98 PG Care Time/CCT Total # of Minutes Spent Total Time Spent with Patient: Total time spent is greater than 50% in coordination of care (as documented) at patient's floor/unit and/or counseling patient: Resident Activity Tracking Resident Involvement: Resident Care Provided Care Provided: OB Delivery
[2019-04-18] MEDS: PRENATAL VITAMIN 1 TAB PO SCH (08:11)
[2019-04-18] MEDS: DOCUSATE SODIUM 100 MG CAP PO SCH (08:11)
[2019-04-18] MEDS: BENZOCAINE 20% AER SPR 82.5 GM CAN EXT PRN (09:15)
== END 2019-04-18 10:04 | disposition home or self-care (01) | DRG 807 ==
LOC: 4S1 07:44 → 4S2 04-16 08:30 → 4S1 04-16 22:41 → 4S2 04-17 02:25
PROC: M.EUALD (2019-04-16 22:40)